=== PATIENT | female | born 1955 | race Caucasian/White ===

== ENCOUNTER 2016-04-28 11:45 | Outpatient (CLI) ==
[2016-04-28 12:56] LABS: BILIRUBIN,URINE Negative (NEGATIVE); KETONES,URINE Negative (NEGATIVE); LEUKOCYTE ESTERASE ,URINE Negative (NEGATIVE); NITRITE,URINE Negative (NEGATIVE); PH,URINE 5.5 (5-9); PROTEIN,URINE Negative (NEGATIVE); URINE, BLOOD Negative (NEGATIVE)
[2016-04-28 12:57] LABS: BASOPHILS % (AUTO) 0.5 % (0.0-3.0); EOSINOPHILS # (AUTO) 0.2 K/ul (0.0-0.7); EOSINOPHILS % (AUTO) 2.9 % (0.0-7.0); HEMOGLOBIN 12.3 g/dl (12.0-16.0); IMMATURE GRANULOCYTE % (AUTO) 0.3 % (0.0-5.0); LYMPHOCYTES # (AUTO) 2.4 K/uL (0.60-3.4); LYMPHOCYTES % (AUTO) 38.9 (10.0-50.0); MEAN CORPUSCULAR HEMOGLOBIN 28.6 pg (27.0-31.0); MEAN CORPUSCULAR HGB CONC 32.4 (31.8-35.4); MEAN CORPUSCULAR VOLUME 88.4 fl (81.0-99.0); MONOCYTES # (AUTO) 0.5 K/uL (0.4-2.0); MONOCYTES % (AUTO) 7.8 (0-10); NEUTROPHILS # (AUTO) 3.1 K/ul (2.0-6.9); NEUTROPHILS % (AUTO) 49.6; PLATELET COUNT 234 10^3/uL (140-440); WHITE BLOOD COUNT 6.28 K/ul (4.6-10.2)
[2016-04-28 12:58] LABS: ADD URINE MICROSCOPIC NO
[2016-04-28 13:19] LABS: ALBUMIN 3.7 g/dL (3.4-5.0); ALBUMIN/GLOBULIN RATIO 1.23; ANION GAP 14.2; BILIRUBIN,TOTAL 0.67 mg/dL (0.00-1.20); CALCIUM 10.9 mg/dL (8.2-10.2); CREATININE 0.7 mg/dL (0.60-1.30); POTASSIUM 4.2 mmol/L (3.5-5.10); TOTAL PROTEIN 6.7 g/dL (5.8-8.1)
== END 2016-04-28 11:46 | disposition home or self-care (01) ==
LOC: LAB 11:45
PROVIDERS: ATTEND General Practice
DX: E78.5 Hyperlipidemia, unspecified (principal); I10 Essential (primary) hypertension; E88.81 Metabolic syndrome and other insulin resistance; R21 Rash and other nonspecific skin eruption; K58.9 Irritable bowel syndrome, unspecified; Z79.899 Other long term (current) drug therapy
CPT/HCPCS: 36415; 80053; 80061; 81001; 85025

== ENCOUNTER 2016-09-01 08:55 | Outpatient (CLI) ==
[2016-09-01 15:06] LABS: BASOPHILS % (AUTO) 0.7 % (0.0-3.0); EOSINOPHILS # (AUTO) 0.2 K/ul (0.0-0.7); EOSINOPHILS % (AUTO) 3.5 % (0.0-7.0); HEMATOCRIT 39.2 % (37.0-47.0); HEMOGLOBIN 12.8 g/dl (12.0-16.0); IMMATURE GRANULOCYTE % (AUTO) 0.2 % (0.0-5.0); LYMPHOCYTES # (AUTO) 2.1 K/uL (0.60-3.4); LYMPHOCYTES % (AUTO) 38.1 (10.0-50.0); MEAN CORPUSCULAR HEMOGLOBIN 28.8 pg (27.0-31.0); MEAN CORPUSCULAR HGB CONC 32.7 (31.8-35.4); MEAN CORPUSCULAR VOLUME 88.1 fl (81.0-99.0); MONOCYTES # (AUTO) 0.4 K/uL (0.4-2.0); MONOCYTES % (AUTO) 7.2 (0-10); NEUTROPHILS # (AUTO) 2.7 K/ul (2.0-6.9); NEUTROPHILS % (AUTO) 50.3; PLATELET COUNT 231 10^3/uL (140-440); RED BLOOD COUNT 4.45 10^6/ul (4.20-5.40); WHITE BLOOD COUNT 5.41 K/ul (4.6-10.2)
[2016-09-01 15:07] LABS: ALBUMIN 3.7 g/dL (3.4-5.0); ALBUMIN/GLOBULIN RATIO 1.32; ANION GAP 16.9; BILIRUBIN,TOTAL 1.01 mg/dL (0.00-1.20); BUN/CREATININE RATIO 25.37; CALCIUM 10.3 mg/dL (8.2-10.2); CHOL/HDL RATIO 4.7 (4.5-5.5); CREATININE 0.67 mg/dL (0.60-1.30); POTASSIUM 3.9 mmol/L (3.5-5.10); TOTAL PROTEIN 6.5 g/dL (5.8-8.1)
[2016-09-01 16:15] LABS: BILIRUBIN,URINE Negative (NEGATIVE); KETONES,URINE Negative (NEGATIVE); LEUKOCYTE ESTERASE ,URINE Negative (NEGATIVE); NITRITE,URINE Negative (NEGATIVE); PH,URINE 6.5 (5-9); PROTEIN,URINE Negative (NEGATIVE); URINE, BLOOD Negative (NEGATIVE)
[2016-09-01 16:16] LABS: ADD URINE MICROSCOPIC NO
== END 2016-09-01 08:56 | disposition home or self-care (01) ==
LOC: LAB 08:55
PROVIDERS: ATTEND General Practice
DX: E88.81 Metabolic syndrome and other insulin resistance (principal); E78.5 Hyperlipidemia, unspecified; I10 Essential (primary) hypertension; Z79.899 Other long term (current) drug therapy; Z87.440 Personal history of urinary (tract) infections
CPT/HCPCS: 36415; 80053; 80061; 81001; 85025

== ENCOUNTER 2017-01-22 13:15 | Outpatient (CLI) ==
[2017-01-22 13:24] LABS: BASOPHILS % (AUTO) 0.4 % (0.0-3.0); EOSINOPHILS # (AUTO) 0.2 K/ul (0.0-0.7); HEMATOCRIT 38.5 % (37.0-47.0); HEMOGLOBIN 12.6 g/dl (12.0-16.0); IMMATURE GRANULOCYTE % (AUTO) 0.4 % (0.0-5.0); LYMPHOCYTES # (AUTO) 2.1 K/uL (0.60-3.4); LYMPHOCYTES % (AUTO) 39.3 (10.0-50.0); MEAN CORPUSCULAR HEMOGLOBIN 29.4 pg (27.0-31.0); MEAN CORPUSCULAR HGB CONC 32.7 (31.8-35.4); MONOCYTES # (AUTO) 0.3 K/uL (0.4-2.0); MONOCYTES % (AUTO) 6.3 (0-10); NEUTROPHILS # (AUTO) 2.6 K/ul (2.0-6.9); NEUTROPHILS % (AUTO) 49.6; PLATELET COUNT 224 10^3/uL (140-440); RED BLOOD COUNT 4.28 10^6/ul (4.20-5.40); WHITE BLOOD COUNT 5.24 K/ul (4.6-10.2)
[2017-01-22 13:27] LABS: BILIRUBIN,URINE Negative (NEGATIVE); KETONES,URINE Negative (NEGATIVE); LEUKOCYTE ESTERASE ,URINE Negative (NEGATIVE); NITRITE,URINE Negative (NEGATIVE); PROTEIN,URINE Negative (NEGATIVE); URINE, BLOOD Negative (NEGATIVE)
[2017-01-22 13:33] LABS: ADD URINE MICROSCOPIC NO
[2017-01-22 13:44] LABS: ALBUMIN 3.4 g/dL (3.4-5.0); ALBUMIN/GLOBULIN RATIO 1.1; BILIRUBIN,TOTAL 0.96 mg/dL (0.00-1.20); BUN/CREATININE RATIO 17.74; CALCIUM 10.3 mg/dL (8.2-10.2); CHOL/HDL RATIO 4.7 (4.5-5.5); CREATININE 0.62 mg/dL (0.60-1.30); TOTAL PROTEIN 6.5 g/dL (5.8-8.1)
== END 2017-01-22 13:16 | disposition home or self-care (01) ==
LOC: LAB 13:15
PROVIDERS: ATTEND General Practice
DX: E88.81 Metabolic syndrome and other insulin resistance (principal); I10 Essential (primary) hypertension; K58.9 Irritable bowel syndrome, unspecified; Z79.899 Other long term (current) drug therapy; R63.5 Abnormal weight gain
CPT/HCPCS: 36415; 80053; 80061; 81001; 83525; 85025

== ENCOUNTER 2017-01-25 08:36 | Outpatient (CLI) ==
--- NOTE | 2017-01-25 11:24 | MAMMO ---
EXAM: Bilateral digital screening mammogram (2-D and 3-D) History: Screening Comparison: Bilateral mammogram 01/30/2016 Findings: MLO and CC views of bilateral breasts demonstrate scattered fibroglandular breast parenchym a. CAD was reviewed by the radiologist. Tomosynthesis was performed. There are no dominant masses, no suspicious microcalcifications and no architectural distortions. Impression: Stable negative mammogram. Recommend followup routine screening mammography in 1 year. BIRADS 1
== END 2017-01-25 08:37 | disposition home or self-care (01) ==
LOC: RAD 08:36
PROVIDERS: ATTEND General Practice
DX: Z12.31 Encounter for screening mammogram for malignant neoplasm of breast (principal)
CPT/HCPCS: 77067

== ENCOUNTER 2017-05-20 13:06 | Outpatient (CLI) | END 2017-05-20 13:07 | disposition home or self-care (01) | LOC: FCC-LAB 13:06 | PROVIDERS: ATTEND General Practice | DX: I10 Essential (primary) hypertension (principal); Z79.899 Other long term (current) drug therapy | CPT/HCPCS: 36415; 80053; 80061; 81001; 85025 ==

== ENCOUNTER 2017-05-27 13:34 | Outpatient (CLI) ==
[2017-05-28 18:21] VITALS: BMI 51.0
== END 2017-05-27 13:35 | disposition home or self-care (01) ==
LOC: FCC-LAB 13:34
PROVIDERS: ATTEND General Practice
DX: J02.9 Acute pharyngitis, unspecified (principal); R05 Cough; R50.9 Fever, unspecified
CPT/HCPCS: 87651; 87804

== ENCOUNTER 2017-05-28 16:34 | Outpatient (CLI) ==
--- NOTE | 2017-05-28 16:49 | DI ---
EXAM: CHEST FRONTAL AND LATERAL VIEWS HISTORY: Cough. COMPARISON: None FINDINGS: Heart size and mediastinal contour within normal limits. No acute infiltrates. Normal vascularity with no pleural fluid or pneumothorax. The bony thorax has no acute finding. IMPRESSION: No acute process.
[2017-05-28 18:21] VITALS: BMI 51.0
== END 2017-05-28 16:35 | disposition home or self-care (01) ==
LOC: RAD 16:34
PROVIDERS: ATTEND General Practice
DX: R05 Cough (principal)

== ENCOUNTER 2017-05-28 17:28 | Inpatient (IN) ==
[2017-05-28 18:21] VITALS: BMI 51.0
[2017-05-28] MEDS ORDERED: DICLOFENAC SODIUM 100 GM TP SCH (18:45)
[2017-05-28] MEDS ORDERED: COZAAR ONE (20:40)
[2017-05-28] MEDS: LOVENOX SUBCUT SCH (20:44)
[2017-05-28] MEDS: PHENERGAN WITH CODEINE 6.25/10 MG/5 ML PO SCH ×2 (20:44→23:40)
[2017-05-28] MEDS ORDERED: NON-FORMULARY MEDICATION (Losartan Potassium [Losartan Potassium] 50 MG) PO SCH (21:00)
[2017-05-28] MEDS: D5%-1/2NS-KCL 20 MEQ/L IV SOL 1,000 ML IV SCH (21:00)
[2017-05-28] MEDS: DUONEB NEB SCH (22:32)
[2017-05-29] MEDS: DUONEB NEB SCH ×4 (05:03→23:25)
[2017-05-29] MEDS: PHENERGAN WITH CODEINE 6.25/10 MG/5 ML PO SCH ×3 (05:48→18:59)
[2017-05-29] MEDS: COZAAR PO SCH ×2 (09:21→20:35)
[2017-05-29] MEDS: ASPIRIN EC PO SCH (09:22)
[2017-05-29] MEDS: NORVASC PO SCH (09:22)
[2017-05-29] MEDS: D5%-1/2NS-KCL 20 MEQ/L IV SOL 1,000 ML IV SCH (09:22)
--- NOTE | 2017-05-29 20:23 | CT ---
EXAM: CT THORAX HISTORY: Cough, shortness of breath. TECHNIQUE: CT thorax without intravenous contrast. Multiplanar images presented. COMPARISON: None FINDINGS: Heart size is normal. No pericardial effusion. Mild atherosclerotic disease. Limited evaluation of the mediastinum and hilar structures without the administration of intravenous contrast agent. No g ross active lymphadenopathy or hilar mass. Lungs are free of infiltrate. No consolidations or vascular congestion. No pneumothorax or pleural fluid. The bones reveal moderate degenerative changes of the thoracic spine. IMPRESSION: No acute cardiopulmonary process.
[2017-05-29] MEDS: LOVENOX SUBCUT SCH (20:37)
[2017-05-30] MEDS: PHENERGAN WITH CODEINE 6.25/10 MG/5 ML PO SCH ×4 (01:31→17:47)
[2017-05-30] MEDS: D5%-1/2NS-KCL 20 MEQ/L IV SOL 1,000 ML IV SCH (04:15)
[2017-05-30] MEDS: DUONEB NEB SCH ×3 (05:06→16:50)
[2017-05-30] MEDS: NORVASC PO SCH (08:04)
[2017-05-30] MEDS: ASPIRIN EC PO SCH (08:04)
[2017-05-30] MEDS: COZAAR PO SCH (08:04)
[2017-05-30 14:09] VITALS: BP 130/79; TEMP 98.2
--- NOTE | 2017-05-31 13:10 | DS ---
PATIENT IDENTIFICATION: 61 year old female admitted to the hospital because of cough, shortness of breath, hypoxemia and wheezing. The patient was sleepless the night before after she was prescribed Tussionex at the office. The patient had an ecchymotic area in the suprasternal knot about 4 x 5 cm in diameter with no hematoma. This was not present the day before. The patient's respiratory rate was 24, oxygen saturation 93 and wheezing all over anteriorly and posteriorly and short of breath with exertion. HOSPITAL COURSE: The patient indeed has inspiratory and expiratory wheezing all over anteriorly and posteriorly on admission. This patient was given DuoNeb nebulizer ever 6 hours. She was continued on most of her medications. The patient on the next day was feeling much better. She was given Phenergan with Codeine for cough every 6 hours, one teaspoon. VITAL SIGNS: On 05/29/17 at 6 p.m. showed a temperature of 98.3, pulse 102, blood pressure 137/72, respiratory rate 18, oxygen saturation 95. The patient had an oxygen saturation on 05/29/2017 at 5:52 a.m. at 93. The chest x-ray showed no acute processes. The CBC showed normal WBC, borderline anemia, normal CMP, except for slightly elevated serum calcium at 10.3. Procalcitonin less than 0.05. Urinalysis was done the next day and was normal. The patient's physical examination on 05/29/17 revealed and alert individual who is feeling better. LUNGS: No significant wheezing. No rales. HEART: Audible and regular with good tones. ABDOMEN: Soft and nontender. She did eat the snack on admission, however refused the clear liquid on 05/717, but had a sandwich in the evening. The patient consumed 100% of her food on 05/30/17. LABS: Showed WBC normal. Hemoglobin down to 10.9 because of hydration. CMP is normal, except for slightly lower Albumin. The E GFR is 102. The patient is feeling better and seemed to be coughing less with the Phenergan with Codeine and the lungs were clear to auscultation and the heart with normal sinus rhythm. The patient is then discharged today to continue her previous medications prior to admission, except the Tussionex and she is prescribed Phenergan with Codeine, one teaspoon four times a day. She has an appointment this coming at the office and this patient was instructed to keep that appointment and see me sooner if she has any problems. No beta agonist is prescribed at this time, since the patient no longer has the wheezing, inspiratory or expiratory. FINAL DIAGNOSES: 1. ACUTE BRONCHITIS, PROBABLY VIRAL, IMPROVED 2. HYPOXEMIA CORRECTED 3. TACHYPNEA RESOLVED 4. HYPERTENSION, CLOSE TO GOOD CONTROL 5. EXTREME OBESITY, BMI 51.1 6. HISTORY OF DYSLIPIDEMIA 7. HISTORY OF IRRITABLE BOWEL SYNDROME FOLLOWED BY A GI DOCTOR, DR. ZAMORA 8. PREVIOUS HISTORY OF HYSTERECTOMY AND CHOLECYSTECTOMY, WELL TOTAL KNEE REPLACEMENT, LEFT. PROGNOSIS: Guarded. MTDD
--- NOTE | 2017-05-31 13:59 | PN ---
DATE OF VISIT: 05/29/17 The patient, today, is alert. Not dyspneic, nor tachypneic with persistent cough, although less. The patient had a severe cough the night before admission and developed an area of ecchymosis in the upper sternal areas secondary to the coughing. VITAL SIGNS: Today at 2 p.m. showed a temperature of 98.7, pulse 80, blood pressure 145/77, respiratory rate 18, oxygen saturation 96 at room air. FACE: Symmetrical and equal. CHEST: Symmetrical and equal with some ecchymotic areas in the upper sternal area, but no hematoma. LUNGS: Breath sounds are heard in both sides and no wheezing or rales. This patient had inspiratory and expiratory wheeze yesterday. HEART: Audible and regular with good tones. MTDD
--- NOTE | 2017-06-01 10:57 | HP ---
CHIEF COMPLAINT: Persistent, severe cough and shortness of breath and wheezing. SOURCE OF HISTORY: Patient. HISTORY OF PRESENT ILLNESS: The patient was seen at the office 05/27/2017 because of cough that had been for more than a week, productive purulent sputum and wheezing. She also experienced sensation of burning in her throat a few days ago and also a hot alternating cold sensation. She hasn't measured any of her temperature. The patient when she was seen seemed to feel that she is feeling somewhat better. She had taken over the counter medications consisting of Robitussin DM, as well as Coricidin D. The patient was prescribed Tussionex , 1/2 teaspoon to 1 teaspoon every 12 hours. The patient came back to the office the next day with increasing shortness of breath and increasing severity of the cough that kept her awake all night. She also had an ecchymosis in the suprasternal area which she had never had it before, maybe secondary to a ruptured subcutaneous vessel. There is no hematoma in the area of ecchymosis. The patient's respiratory rate at the office was 24 and the oxygen saturation was 93. She was noted to have inspiratory and expiratory wheezing all over anteriorly and posteriorly. Because of the severe cough, tachypnea, as well as hypoxemia, the patient was felt to require an admission. The patient had a rapid A and B on 05/27/2017 and both of those were negative including a negative rapid strep. PAST PERSONAL HISTORY: The patient was seen by Dr. Cat, a GI doctor, because of diagnosis of IBS and was prescribed the Dicyclomine 20 mg three times a day, as well as Diclofenac with Misoprostol. She did experience nausea with this medication and so she had stopped. She had a colonoscopy done by Dr. Cat May 19, 2017. Previous cholecystectomy, history of kidney stones 2016 , previous total abdominal hysterectomy, right carpal tunnel surgery, right total knee replacement, history of hypertension, dyslipidemia, IBS, diverticulosis, metabolic syndrome and chronic headaches and persistent obesity. FAMILY HISTORY: Father had diabetes mellitus, a child had Crohn's disease, a brother had kidney stones and mother had bladder carcinoma, plus diabetes. There is a cancer history in the maternal side. SOCIAL HISTORY: The patient is and resides with her and her children are grown. She had retired from work at [employer]. MEDICATIONS: Prior to this admission. Midrin one p.o. as directed Zinc 50 mg daily Vitamin B complex daily Cranberry capsule two daily Multivitamin with Calcium plus iron one daily Poly-Iron 150 mg capsule daily Celecoxib 200 mg every other day Aspirin 81 mg daily Amlodipine 5 mg daily Diclofenac Sodium gel to be applied externally Losartan 50 mg twice a day Tussionex 1/2 to 1 teaspoon every 12 hours and the patient had cough, whether this is just a progression of the problem or maybe an allergy to the medication. Dicyclomine HCL 20 mg tablet three times a day ALLERGIES: Penicillin, Diclofenac/Misoprostol-nausea. Tussionex questionable. Augmentin producing nausea, headache and fatigue and GI upset. Tequin-heart palpitation, Macrodantin-nausea. Vioxx, the patient is able to tolerate celecoxib. REVIEW OF SYSTEMS: CONSTITUTIONAL: The patient had no fever. Had a chilly alternating with hot sensation and some fatigue because of the persistent cough for more than a week. She did not sleep last night. BUNCH BREAKER: The patient has history of headaches. No significant headache at this time and no history of seizure problems or syncope. VISUAL: The patient denies any blurred vision, double vision or transient loss of vision. AUDITORY: The patient denies any pain or tinnitus or drainage on both ears. RESPIRATORY: The patient has severe intractable cough, rapid breathing and shortness of breath, plus wheezing. CARDIOVASCULAR: Denies any chest pain or chest tightness. GASTROINTESTINAL: The patient does have irritable bowel syndrome, but she has decreased appetite, but no significant abdominal pain and no diarrhea. No vomiting. GENITOURINARY: Denies any pain or urination. MUSCULOSKELETAL: The patient has joint pains and had knee replacement on the left side. ENDOCRINE: Negative. INTEGUMENT: Denies any rash or pruritus, but has ecchymosis at the suprasternal area that was noted this morning. There was no history of injury. The patient just was coughing through the night and did not sleep. HEMATOLOGIC: No sign of prolonged bleeding. PSYCHIATRIC: Affect is normal. PHYSICAL EXAMINATION: GENERAL: We have a 61 year old female admitted to the hospital because of increasing severity of the cough with shortness of breath and wheezing and rapid breathing. Oxygen saturation at the office was 93. Respiratory rate was 24. She is 5'7", weighing 326 pounds, BMI 51.1. VITAL SIGNS: On admission, temperature 97.9, pulse 77, blood pressure 162/84, respiratory rate 20, oxygen saturation 95 at room air. HEAD: Unremarkable. Scalp with no active dermatitis. FACE: Symmetrical and equal with no facial weakness. No tenderness in the frontal or maxillary sinus areas to palpation under pressure. EYES: Pupils equal/reactive to light about 3 mm in size and round. Conjunctivae not pale. Sclerae not icteric. EARS: No drainage. MOUTH: Unremarkable. THROAT: No inflammation, tumors or exudate. NECK: No masses. No bruit. No tenderness. No rigidity. Adenopathy or adenitis. CHEST: Symmetrical and equal with good expansion. LUNGS: Breath sounds are diminished in both sides with inspiratory and expiratory wheeze throughout both anteriorly and posteriorly. HEART: Audible and regular with good tones. No murmurs. ABDOMEN: Protuberant, pendulous, scar from previous surgery. No remarkable tenderness. Bowel sounds are active. EXTERNAL GENITALIA: Not examined. PELVIC AND RECTAL: Not done. LOWER EXTREMITIES: Symmetrical and equal with ankle edema. Anterior tibials present. Unable to palpate posterior tibials. UPPER EXTREMITIES: Symmetrical and equal. ASSESSMENT: 1. ACUTE VIRAL BRONCHITIS 2. RESPIRATORY FAILURE SECONDARY TO #1. 3. HYPERTENSION UNCONTROLLED 4. INTRACTABLE COUGH 5. QUESTIONABLE ALLERGY TO TUSSIONEX 6. HISTORY OF OSTEOARTHRITIS 7. HISTORY OF IBS 8. HISTORY OF HEADACHE 9. HISTORY OF DYSLIPIDEMIA 10. HISTORY OF MORBID OBESITY MTDD
== END 2017-05-30 18:20 | disposition home or self-care (01) | DRG 202 ==
LOC: MEDSURG A 17:28
PROVIDERS: ADMIT General Practice; ATTEND General Practice
DX: J20.8 Acute bronchitis due to other specified organisms (principal); Z68.43 Body mass index [BMI] 50.0-59.9, adult; R09.02 Hypoxemia; R06.82 Tachypnea, not elsewhere classified; I10 Essential (primary) hypertension; E66.8 Other obesity; E78.5 Hyperlipidemia, unspecified; K58.9 Irritable bowel syndrome, unspecified; Z79.899 Other long term (current) drug therapy
CPT/HCPCS: 36415; 80053; 81001; 83525; 84145; 85025; 86710; 87070; 93005; 93010; 94640

== ENCOUNTER 2017-06-14 11:58 | Outpatient (CLI) | END 2017-06-14 11:59 | disposition home or self-care (01) | LOC: FCC-LAB 11:58 | PROVIDERS: ATTEND General Practice | DX: R05 Cough (principal); R06.02 Shortness of breath | CPT/HCPCS: 36415; 86710 ==

== ENCOUNTER 2017-06-17 15:45 | Emergency (ER) ==
[2017-06-17 15:46] VITALS: BMI 51.0
[2017-06-17 15:52] VITALS: BP 166/111; TEMP 97.1
--- NOTE | 2017-06-17 16:08 | ED.PDOC ---
General ED Provider: Dr. FERNANDO BRADLEY Chief Complaint: Non-specific Complaint Stated Complaint: Trouble swallowing. Sensation of rice getting stuck in her lower throat. Presents acutely anxious stating event just started 15 minutes ago. Denies Nausea or vomiting but spitting up clear secretions Time Seen by Physician: 16:05 Mode of Arrival: Walk-In Information Source: Patient Exam Limitations: No limitations Primary Care Provider: [facility] Nursing and Triage Documentation Reviewed and Agree: Yes Reviewed sepsis parameters & appropriate labs ordered?: Yes System Inflammatory Response Syndrome: Not Applicable Sepsis Protocol: For patient's 13 years and over: Temp is 96.8 and below OR 101 and greater Pulse >90 BPM Resp >20/minute Acutely Altered Mental Status Are patient's symptoms suggestive of a new infection, such as: -Pneumonia -Skin, Soft Tissue -Endocarditis -UTI -Bone, Joint Infection -Implantable Device -Acute Abdominal Infection -Wound Infection -Meningitis -Blood Stream Catheter Infection -Unknown System Inflammatory Response Syndrome: Not Applicable () GI Complaint Exam - Abdominal Pain Complaint/Exam Onset: Sudden Duration: 20 min Symptoms Are: Still present (but improved) Timing: Constant Initial Severity: Severe Location of Pain: Discrete Radiates To: Reports: Back Character: Reports: Dull, Aching Aggravating: Reports: None Alleviating: Reports: Rest, Position Associated Signs and Symptoms: Reports: Cough Surgical Obstruction Risk Factors: Reports: None Related Surgical History: Reports: None Abdominal Findings: Absent: CVA Tenderness, Hernia, Inguinal swelling Differential Diagnoses: Other (GERD/hiatal hernia) Review of Systems - Review Of Systems Constitutional: Reports: No symptoms Eyes: Reports: No symptoms Ears, Nose, Mouth, Throat: Reports: No symptoms Respiratory: Reports: No symptoms Cardiac: Reports: No symptoms GI: Reports: No symptoms, Abdominal pain (Gastric Reflux), Nausea : Reports: No symptoms Musculoskeletal: Reports: No symptoms Skin: Reports: No symptoms Neurological: Reports: No symptoms Endocrine: Reports: No symptoms Hematologic/Lymphatic: Reports: No symptoms All Other Systems: Reviewed and Negative Past Medical History - Past Medical History Endocrine: Reports: None Cardiovascular: Reports: None Respiratory: Reports: None Hematological: Reports: None Gastrointestinal: Reports: None, GERD, Other (IBS) Genitourinary: Reports: None Neuro/Psych: Reports: None Musculoskeletal: Reports: None Cancer: Reports: None Last Menstrual Period: HYSTERECTOMY - Surgical History General Surgical History: Reports: None, Unknown - Family History Family History: Reports: Unknown - Social History Smoking Status: Never smoker Hx Substance Use: No Alcohol Screening: None Physical Exam - Physical Exam Appearance: Well-appearing, Obese Ill-appearing: Mild Pain Distress: Mild Eyes: JUN, EOMI, Conjunctiva clear ENT: Ears normal, Nose normal, Oropharynx normal Respiratory: Airway patent, Breath sounds clear, Breath sounds equal, Respirations nonlabored Cardiovascular: RRR, Pulses normal, No rub, No murmur GI/: Tender (midepigastrium) Musculoskeletal: Normal strength, ROM intact, No edema, No calf tenderness Skin: Warm, Dry, Normal color Neurological: Sensation intact, Motor intact, Reflexes intact, Cranial nerves intact, Alert, Oriented Psychiatric: Affect appropriate, Mood appropriate Interpretation - Radiology Interpretation Radiology Results: Negative Exam Interpreted: CXR Radiology Interpretation By: Radiologist Re-Evaluation - Re-Evaluation Time of Re-Evaluation: 18:00 Status: Improved Vital Signs Stable: Yes Appearance: NAD Lungs: Clear Skin: Warm and Dry Neuro: Alert and Oriented X3 CV: RRR Critical Care Note - Critical Care Note Total Time (mins): 30 Course - Course Hematology/Chemistry: 06/17/17 16:45 06/17/17 16:45 Orders, Labs, Meds: Lab Review 06/17/17 06/17/17 16:45 16:45 WBC 7.36 RBC 4.48 Hgb 13.1 Hct 40.5 MCV 90.4 MCH 29.2 MCHC 32.3 RDW Coeff of Reymundo 14.0 Plt Count 239 Immature Gran % (Auto) 0.3 Neut % (Auto) 53.5 Lymph % (Auto) 36.4 Culberson % (Auto) 6.0 Eos % (Auto) 3.4 Baso % (Auto) 0.4 Immature Gran # (Auto) 0.0 Neut # (Auto) 3.9 Lymph # (Auto) 2.7 [place]on # (Auto) 0.4 Eos # (Auto) 0.3 Baso # (Auto) 0.0 Sodium 140 Potassium 3.6 Chloride 108 H Carbon Dioxide 22 L Anion Gap 13.6 BUN 11 Creatinine 0.68 Estimated GFR (MDRD) 88.00 BUN/Creatinine Ratio 16.17 Glucose 136 H Calcium 10.5 H Total Bilirubin 0.8 AST 22 ALT 32 Alkaline Phosphatase 94 Total Creatine Kinase 53 Troponin I < 0.0100 Total Protein 7.3 Albumin 3.8 Globulin 3.5 Albumin/Globulin Ratio 1.09 Orders Category Date Time Status EKG-(ED ONLY) Stat CARDIO 06/17/17 16:11 Ordered CBC W/ AUTO DIFF Stat LAB 06/17/17 16:45 Completed CMP [COMPREHENSIVE METABOLIC PANEL] Stat LAB 06/17/17 16:45 Completed CPK [CREATINE KINASE] Stat LAB 06/17/17 16:45 Completed TROPONIN I Stat LAB 06/17/17 16:45 Completed Mag-Al Plus//Lidocaine [Gi Cocktail] MEDS 06/17/17 16:13 Discontinued 30 ml PO ONCE STA Pantoprazole Sodium [Protonix] MEDS 06/17/17 16:13 Discontinued 40 mg PO ONCE STA CHEST, 2 VIEWS PA & LAT Stat RADS 06/17/17 16:11 Completed Medications Discontinued Medications Generic Name Dose Route Start Last Admin Trade Name Freq PRN Reason Stop Dose Admin Al Hydroxide/Mg Hydroxide 30 ml 06/17/17 16:13 06/17/17 16:24 Gi Cocktail PO 06/17/17 16:14 30 ml ONCE STA Administration Pantoprazole Sodium 40 mg 06/17/17 16:13 06/17/17 16:21 Protonix PO 06/17/17 16:14 40 mg ONCE STA Administration Vital Signs: Temp Pulse Resp BP Pulse Ox 06/17/17 15:46 97.1 F L 79 19 166/111 H 99 Departure - Departure Time of Disposition: 17:15 Disposition: HOME SELF-CARE Discharge Problem: GERD (gastroesophageal reflux disease), Esophageal spasm Instructions: Gastroesophageal Reflux Disease (ED), Esophageal Spasm (ED) Condition: Good Pt referred to PMD for follow-up: Yes (1 week) IPMP verified?: No Additional Instructions: Resume taking Prevacid daily Gastric reflux precautions Mylanta 15 ml after each meal and at bedtime Allergies/Adverse Reactions: Allergies amoxicillin trihydrate [From Augmentin] Allergy (Mild, Unverified 06/17/17 15:52 ) Nausea Patient states headache, fatigue and GI upset. diclofenac sodium [From Arthrotec] Allergy (Mild, Unverified 06/17/17 15:52) Nausea misoprostol [From Arthrotec] Allergy (Mild, Unverified 06/17/17 15:52) Nausea potassium clavulanate [From Augmentin] Allergy (Mild, Unverified 06/17/17 15:52) Nausea Patient states headache, fatigue and GI upset. gatifloxacin [From Tequin] Allergy (Unverified 06/17/17 15:52) Heart palpations nitrofurantoin macrocrystal [From Macrodantin] Allergy (Unverified 06/17/17 15: 52) Nausea rofecoxib [From Vioxx] Allergy (Unverified 06/17/17 15:52) Unknown Home Medications: Ambulatory Orders Zinc Amino Acid Chelate [Zinc] 50 mg PO once daily #30 tab-cap 02/08/15 Cranberry Conc/Ascorbic Acid [Cranberry Plus Vitamin C Sftgl] 2 each PO DAILY # 60 tab-cap 05/06/15 Multivit with Calcium,Iron,Min [Women's Daily Formula] 1 each PO DAILY tab-cap 05/06/15 Vitamin B Complex [B Complex] 1 each PO DAILY tab-cap 05/06/15 Iron Polysaccharide Complex [Poly-Iron] 150 mg PO DAILY #30 tab-cap 09/30/15 Aspirin [Aspirin EC] 81 mg PO DAILY #30 tab-cap 05/06/16 Dicyclomine HCl 20 mg PO TID 05/27/17 Disposition Discussed With: Patient, Family
[2017-06-17] MEDS ORDERED: GI COCKTAIL PO STA (16:13)
[2017-06-17] MEDS ORDERED: PROTONIX PO STA (16:13)
--- NOTE | 2017-06-17 16:44 | DI ---
EXAM: Two views of the chest. History: Cough. Comparison: Chest radiograph 05/28/2017, chest CT 05/29/2017 Findings: Heart size is normal. No focal consolidation. No appreciable pleural fluid and no pneumo thorax. No acute osseous abnormalities. Impression: No acute cardiopulmonary process
== END 2017-06-17 17:30 | disposition home or self-care (01) ==
LOC: ED 15:45
DX: K21.9 Gastro-esophageal reflux disease without esophagitis (principal); K22.4 Dyskinesia of esophagus
CPT/HCPCS: 36415; 80053; 82550; 84484; 85025; 93005; 93010; 99283

== ENCOUNTER 2017-09-16 14:33 | Outpatient (CLI) | END 2017-09-16 14:34 | disposition home or self-care (01) | LOC: FCC-LAB 14:33 | PROVIDERS: ATTEND General Practice | DX: R30.0 Dysuria (principal) | CPT/HCPCS: 81001 ==

== ENCOUNTER 2017-10-11 10:25 | Outpatient (CLI) | END 2017-10-11 10:26 | disposition home or self-care (01) | LOC: FCC-LAB 10:25 | PROVIDERS: ATTEND General Practice | DX: E78.5 Hyperlipidemia, unspecified (principal); I10 Essential (primary) hypertension; Z79.899 Other long term (current) drug therapy | CPT/HCPCS: 36415; 80053; 80061; 81001; 85025 ==

== ENCOUNTER 2017-10-15 13:15 | Outpatient (CLI) | END 2017-10-15 13:16 | disposition home or self-care (01) | LOC: FCC-LAB 13:15 | PROVIDERS: ATTEND General Practice | DX: E83.52 Hypercalcemia (principal) | CPT/HCPCS: 36415; 82310; 83970 ==

== ENCOUNTER 2017-10-22 07:47 | Outpatient (CLI) ==
--- NOTE | 2017-10-22 14:44 | NM ---
Exam: Parathyroid scintigraphy Date of exam: 10/22/2017 Radiopharmaceutical: 20.2 mCi Tc-99m Sestamibi i.v. Reason for exam: Endocrine disorder elevated parathyroid FINDINGS: After the intravenous administration of technetium-99m sestamibi, planar images of the nec k mediastinum were obtained at approximately 30 minutes and 3 hours. There is increased radiopharmaceutical uptake in the right inferior thyroid lobe on the 30-minute chichi ne are images. There is a persistent focus of increased radiopharmaceutical uptake in the right infer ior thyroid lobe on the 3 hour delayed planar images. There is also a small focus of persistent radio pharmaceutical activity in the left inferior thyroid lobe. Impression: Persistent radiopharmaceutical uptake in the right inferior thyroid lobe with mild persistent radioph armaceutical uptake in the left inferior thyroid lobe on the 3 hour delayed planar images. Imaging f indings raise consideration for an enlarged parathyroid glands. Consider further evaluation.
== END 2017-10-22 07:48 | disposition home or self-care (01) ==
LOC: RAD 07:47
PROVIDERS: ATTEND General Practice
DX: E34.9 Endocrine disorder, unspecified (principal); E83.52 Hypercalcemia

== ENCOUNTER 2017-11-04 17:16 | Observation (INO) ==
[2017-11-04 18:26] VITALS: BMI 53.6
[2017-11-04] MEDS ORDERED: NON-FORMULARY MEDICATION (Magnesium Oxide [Magnesium] 400 MG) PO SCH (21:00)
[2017-11-04] MEDS ORDERED: NON-FORMULARY MEDICATION (Acetaminophen [Tylenol Arthritis] 650 MG) PO PRN (22:17)
[2017-11-04] MEDS ORDERED: [UNRECOGNIZED DRUG - OTHER] PO PRN (22:20)
--- NOTE | 2017-11-05 07:48 | DI ---
EXAM: PA and lateral views of the chest HISTORY: Chest pain COMPARISON: Chest x-ray 06/17/[address] chest 05/29/2017 FINDINGS: The cardiomediastinal silhouette is normal. There is no pneumothorax or pleural effusion. There is no consolidation, nodule or mass. The osseous structures demonstrate degenerative disease of the spine. IMPRESSION: No acute cardiopulmonary process
[2017-11-05] MEDS ORDERED: TYLENOL PO PRN (07:59)
[2017-11-05] MEDS ORDERED: ASPIRIN EC PO SCH (08:00)
[2017-11-05] MEDS ORDERED: CHLORPHENIRAMINE MALEATE 4 MG PO SCH (09:00)
[2017-11-05] MEDS ORDERED: COZAAR PO SCH ×2 (09:00→10:00)
[2017-11-05] MEDS ORDERED: ZANTAC PO SCH ×2 (09:00→17:00)
[2017-11-05] MEDS ORDERED: NIFEREX 150 PO SCH (09:00)
[2017-11-05] MEDS ORDERED: NON-FORMULARY MEDICATION (Losartan Potassium [Losartan Potassium] 50 MG) PO SCH (09:00)
[2017-11-05] MEDS ORDERED: BALANCED B-100 PO SCH (09:00)
[2017-11-05] MEDS ORDERED: DICYCLOMINE HCL 10 MG PO SCH (09:00)
[2017-11-05] MEDS ORDERED: NON-FORMULARY MEDICATION (Multivit With Calcium,Iron,Min [Women's Daily Formula] 1 EACH) PO SCH (09:00)
[2017-11-05] MEDS ORDERED: MULTIVITAMIN TABLET PO SCH (09:00)
[2017-11-05] MEDS: BENTYL PO SCH ×2 (09:37→14:40)
[2017-11-05] MEDS: PROTONIX PO SCH ×2 (09:43→16:43)
--- NOTE | 2017-11-05 09:46 | PCM.CONS ---
CONSULTING PROVIDER: Dr. FE MARIEE ATTENDING PROVIDER: Dr. [facility]J [facility] DATE OF SERVICE: 11/05/17 SUBJECTIVE: This 61 year old WHITE/ F was hospitalized 11/04/17. The patient is seen in consultation by Nellie Ortega APRN. The patient describes recent intermittent chest pain, sharp, stabbing in center of chest, at times radiating to jaw. No sweating. No shortness of breath. The patient has history of dyslipidemia. She had previously been on statins but Dr. Roa had discontinued. The patient reports having heart catheterization greater than 10 years ago at [facility]. Recent lipid panel abnormal. The patient also has history of GERD but also experienced chest pain. REVIEW OF SYSTEMS: CONSTITUTIONAL: No night sweats. No fatigue, malaise, lethargy. No fever or chills. HEENT: Eyes: No visual changes. No eye pain. No eye discharge. ENT: No runny nose. No epistaxis. No sinus pain. No odynophagia. No congestion. RESPIRATORY: No cough, no congestion. No hemoptysis. No shortness of breath. CARDIOVASCULAR: No angina symptoms. No CHF symptoms. Chest pain for CAD. No palpitations. No orthopnea. GASTROINTESTINAL: No abdominal pain. No nausea or vomiting. No diarrhea or constipation. No hematemesis. No hematochezia. GENITOURINARY: No urgency. No frequency. No dysuria. No hematuria. No obstructive symptoms. No discharge. No pain. No significant abnormal bleeding. MUSCULOSKELETAL: No musculoskeletal pain; no joint swelling. NEUROLOGICAL: Awake, alert, oriented to time, place and person. No headache. No neck pain. No syncope. No seizures. No dizziness. PSYCHIATRIC: Not anxious. No depression. No suicidal thoughts. No homicidal thoughts. SKIN: No rash. No lesions. No wounds. ENDOCRINE: No unexplained weight loss. No weight gain. HEMATOLOGIC/LYMPHATIC: No anemia. No purpura. No petechiae. No prolonged or excessive bleeding. No palpable lymph nodes. PHYSICAL EXAMINATION: GENERAL: The patient is awake, alert and oriented, lying/sitting in bed in no distress. VITAL SIGNS: Temperature 97.5 F, Pulse 63, Respiratory Rate 16, BP 113/61, Pulse Ox 93% HEENT: Head normocephalic, atraumatic. Eyes: Extraocular muscles are intact. Pupils are equal, round and reactive to light and accommodation. Ears: No lesions. Nose appeared normal. Throat: No exudate or erythema. NECK: Supple. No JVD, no carotid bruit. No lymphadenopathy or thyromegaly. LUNGS: Clear to auscultation. Percussion note normal. Chest symmetrical. HEART: S1, S2, no S3. No murmurs. No cyanosis or clubbing. No ascites. Pulses: Dorsalis pedis and posterior tibial pulses +1 to +2 both sides. ABDOMEN: Soft. Non-tender. Bowel sounds active. No CVA tenderness. No mass felt. EXTREMITIES: No edema. Full range of motion of all extremities, equal. NEUROLOGIC: No focal deficit. Cranial nerves II through XII are grossly intact. No headache, no double vision or headache. SKIN: Warm and dry. Intact. Turgor-normal. LYMPHATIC: No palpable lymph nodes/no lymphedema. MUSCULOSKELETAL: Normal joints with no swelling. Muscle tone is normal. LAB REVIEW: 11/04/17 20:08 11/04/17 20:08 11/04/17 20:08: Sodium 140.4, Potassium 3.67, Chloride 106.8, Carbon Dioxide 26.9, Anion Gap 10.37, BUN 18.1 H, Creatinine 0.74, Estimated GFR (MDRD) 80.00, BUN/Creatinine Ratio 24.45, Glucose 108.3 H, Calcium 10.77 H, Total Bilirubin 0.86, AST 38.1 H, ALT 33.5, Alkaline Phosphatase 96.5, Total Creatine Kinase 65.3, Troponin I < 0.012, Total Protein 7.29, Albumin 4.20, Globulin 3.09, Albumin/Globulin Ratio 1.35, TSH 1.780 11/04/17 20:08: WBC 6.93, RBC 4.73, Hgb 13.6, Hct 41.4, MCV 87.5, MCH 28.8, MCHC 32.9, RDW Coeff of Reymundo 14.0, Plt Count 220, Immature Gran % (Auto) 0.1, Neut % (Auto) 56.3, Lymph % (Auto) 35.1, Freeborn % (Auto) 6.2, Eos % (Auto) 2.0, Baso % (Auto) 0.3, Immature Gran # (Auto) 0.0, Neut # (Auto) 3.9, Lymph # (Auto ) 2.4, Freeborn # (Auto) 0.4, Eos # (Auto) 0.1, Baso # (Auto) 0.0 ASSESSMENT: 1. Chest pain 2. GERD 3. Hypertension 4. Obesity 5. Dyslipidemia RECOMMENDATIONS/PLAN: 1. Stress echo today by Dr. Mariee 2. Protonix 40 mg p.o. b.i.d. 3. Stop Zantac 4. Lipitor 40 mg p.o. daily Plan and coordination of the patient's care discussed in the presence of Rn Bsn and Nurse. CONDITION: Stable SCRIBED BY: LAURENT CESPEDES, Restaurant Worker scribed while in presence of service performed by NELLIE ORTEGA APRN AND Dr. FE MARIEE on 11/05/17 (0900)
[2017-11-05 18:14] VITALS: BP 126/81; TEMP 97.9
[2017-11-05] MEDS ORDERED: MAG-OX PO SCH (21:00)
[2017-11-05] MEDS ORDERED: LIPITOR PO SCH (21:00)
--- NOTE | 2017-11-08 10:53 | SSS ---
DATE OF SERVICE: 11/05/17 CHIEF COMPLAINT: Anterior chest pain with diaphoresis and nausea. HISTORY OF PRESENT ILLNESS: The patient presented to the office on the day of admission because of elevated PTH intact and serum calcium. The patient had parathyroid scintigraphy and was this was to be discussed on the visit. The parathyroid scintigraphy indeed was abnormal and the patient has a possible parathyroid hyperplasia both interior glands. The patient already has a referral to an well control instructor. She did complain of anterior chest pain, which she describes as severe radiating to both sides of her chest. She had some diaphoresis with nausea. No significant weakness. The problem lasted for about two hours and it happened two days prior to this visit. The patient at the time of examination on 11/04/2017 was alert, oriented times four, not dyspneic, nor tachypneic without any chest pain. Because of the history indicative of angina, probably unstable, the patient was advised admission on observation and further cardiac work-up. The patient was agreeable. PAST PERSONAL HISTORY: The patient had tonsillectomy at age 3, some cardiomegaly with PVC, hypertension, dyslipidemia, GERD, cholecystectomy, renal stones treated with lithotripsy, hysterectomy, right carpal tunnel surgery and right total knee replacement, pain in the left knee and anemia. The patient had colonoscopy 05/19/2016 and endoscopy date unknown to her. Elevated PTH intact and serum calcium and abnormal intake of bilateral lower parathyroid. Also sleep apnea and persistent elevated BMI. FAMILY HISTORY: Daughter has Crohn's disease, father had diabetes mellitus, father had renal stones, mother had bladder carcinoma, as well as diabetes. Some other members of the family had malignancy. SOCIAL HISTORY: The patient is and resides with her who is retired. Her children are grown. The patient does not smoke any cigarettes or use any tobacco products and no alcoholic beverages. MEDICATIONS: Prior to this admission. Vitamin B complex one tablet daily, Multivitamin with calcium, iron one daily, Poly-Iron 150 mg daily, Aspirin 81 mg daily, Losartan 50 mg twice a day, Magnesium Oxide 400 mg at bedtime, Headache Powder one packet every 6 hours prn for headache, Chlorpheniramine Maleate 4 mg twice a day, Cranberry concentrate plus Ascorbic acid two capsules three times a day, Bentyl Hydrochloride 10 mg three times a day, Zantac 150 mg twice a day, Tylenol 650 mg daily for the left knee pain. ALLERGIES: The patient is allergic to Amoxicillin, Diclofenac, Misoprostol, Tequin, Augmentin, Macrodantin, Vioxx. REVIEW OF SYSTEMS: CONSTITUTIONAL: The patient denies any fever or chills or fatigue. HEARING IMPAIRED TEACHER: The patient does have some headaches intermittently, but no headache today. Denies any ataxia or syncopal episodes or seizure problems. VISUAL: She denies any blurred vision, double vision or transient loss of vision including hemianopsia. AUDITORY: Hearing is adequate. Denies any tinnitus, pain or drainage. RESPIRATORY: Denies any significant cough, shortness of breath or hemoptysis. CARDIOVASCULAR: Denies any chest pain now, but had anterior chest pain described as severe radiating to both sides of the anterior chest and to the mandible with nausea and diaphoresis. GASTROINTESTINAL: The patient has no nausea, anorexia or dysphagia now. She did have nausea two days ago. No abdominal pain. No change in bowel habits and no blood in the stool. GENITOURINARY: Denies any pain or urgency on urination and no blood in the urine. MUSCULOSKELETAL: The patient had a previous right TKR and now is going to undergo TKR on the left because of pain. ENDOCRINE: Negative, except that the patient is markedly obese. INTEGUMENT: Denies any rash, pruritus or ecchymosis. HEMATOLOGIC: Negative. PSYCHIATRIC: Affect is normal and the patient is always cheerful. PHYSICAL EXAMINATION: GENERAL: We have a 61 year old female who is going to be 62 soon who is admitted to the hospital because of anterior chest pain radiating to both sides of the anterior chest and to the right mandibular area. The pain was accompanied with nausea, plus anorexia. VITAL SIGNS: Showed a temperature of 98.5, pulse 107, blood pressure left is 137 /93, right 148/88, respiratory rate 20, oxygen saturation 98 at room air. She is 5'6.5 inches, 337 pounds. HEAD: Unremarkable. Scalp with no active dermatitis. FACE: Symmetrical and equal with no facial weakness. She denies any tenderness in the frontal or maxillary sinus areas to palpation under pressure. EYES: Pupils equal/reactive to light and round. Conjunctivae not pale. Sclerae not icteric. MOUTH: Unremarkable. THROAT: No inflammation, tumors or exudate. EARS: External ears normal. No drainage. NECK: No masses palpated including the parathyroids and mid to lower portion of the thyroid area. No bruit. No tenderness. No rigidity. CHEST: Symmetrical and equal with good expansion. LUNGS: Breath sounds are heard in both sides with no rales or wheezing. HEART: Audible and regular with good tones and slightly tachycardic at 107. No murmurs. ABDOMEN: Markedly protuberant, soft with no significant tenderness, but difficult to palpate any masses. Bowel sounds are active and no bruit. EXTERNAL GENITALIA: Not examined. PELVIC AND RECTAL: Not performed. LOWER EXTREMITIES: Essentially symmetrical and equal with no tenderness in the calf muscles. There is some pitting edema 1+. Tibial pulses are present, but the posterior tibials are diminished. UPPER EXTREMITIES: Symmetrical and equal. ASSESSMENT: 1. ANGINA 2. HYPERTENSION, NEAR GOOD CONTROL 3. MARKEDLY ELEVATED BMI 4. OBSTRUCTIVE SLEEP APNEA 5. OSTEOARTHRITIS BOTH KNEES, SEVERE. POST RIGHT TKR AND THE LEFT WILL BE OPERATED SOON. 6. [facility]RSE: The patient while in the hospital had the following work-up, CBC normal, CMP is slightly elevated sugar at 108.3, serum calcium 10.77, AST slightly above normal at 38.1, upper normal 36. Troponin normal at less than 0.012. CK normal at 65.3. Thyroid normal 1.780. Stress test negative for ischemia. This patient was advised about the negative findings and she felt relieved. The patient was prescribed Protonix by Dr. Mariee at 40 mg daily, as well as Lipitor. However, I would change the Lipitor to Crestor. This will be called into the pharmacy. Crestor 10 mg daily and Protonix 40 mg before a meal once a day. FINAL DIAGNOSIS: 1. ANTERIOR CHEST PAIN, ETIOLOGY UNDETERMINED 2. HISTORY OF GERD 3. HISTORY OF SLEEP DISORDER, OBSTRUCTIVE SLEEP APNEA 4. MARKEDLY ELEVATED BMI 5. HYPERTENSION, CONTROLLED 6. POSSIBLE PARATHYROID HYPERPLASIA, ELEVATED SERUM CALCIUM AND PTH INTACT AND POSITIVE PARATHYROID SCINTIGRAPHY 7. HISTORY OF NEPHROLITHIASIS TREATED WITH LITHOTRIPSY TIME SPENT: GREATER THAN 65 MINUTES MTDD
--- NOTE | 2017-11-08 11:51 | CONS ---
DATE OF SERVICE: 11/05/17 CONSULTATION: REASON FOR CONSULTATION: Chest pain. HISTORY OF PRESENT ILLNESS: This is a 61-year-old female who presented from M.D office and reports chest pain, midsternal, sharp and radiates from center of chest outward to shoulders. She originally thought pain was from GERD but due to radiation to right jaw she became concerned. She reports pain last occurred two days ago while driving . No diaphoresis. Reports nausea. The patient was seen and examined with the Loft Rigger. The patient was hospitalized with chest pain, seems to be fairly atypical. REVIEW OF SYSTEMS: CONSTITUTIONAL: No night sweats. No fatigue, malaise, lethargy. No fever or chills. HEENT: Eyes: No visual changes. No eye pain. No eye discharge. ENT: No runny nose. No epistaxis. No sinus pain. No sore throat. No odynophagia. No ear pain. No congestion. Seasonal allergies. RESPIRATORY: Intermittent cough, nonproductive. No hemoptysis. CARDIOVASCULAR: No angina symptoms. No CHF symptoms. No atypical chest pain for CAD, PND or orthopnea at the present time. No palpitations. No shortness of breath. GASTROINTESTINAL: No abdominal pain. No nausea or vomiting. No diarrhea or constipation. No hematemesis. No hematochezia. GENITOURINARY: Dribbling and urgency at times. MUSCULOSKELETAL: Osteoarthritis pain to hands, left knee, lower back. NEUROLOGICAL: Occasional headache. No neck pain. No syncope. No seizures. No dizziness. PSYCHIATRIC: Not anxious. No depression. No suicidal thoughts. No homicidal thoughts. SKIN: Warm and dry. No rash. No lesions. No wounds. ENDOCRINE: No unexplained weight loss. No weight gain. HEMATOLOGIC/LYMPHATIC: No anemia. No purpura. No petechiae. No prolonged or excessive bleeding. No palpable lymph nodes. SOCIAL HISTORY: Nonsmoker. No alcohol use. . MEDICATIONS: ASA Tylenol arthritis Chlorpheniramine maleate Cranberry plus Vitamin C Dicyclomine Losartan Magnesium Oxide MVI with Iron Niferex Zantac Vitamin B complex ALLERGIES: AMOXICILLIN, DICLOFENAC, AUGMENTIN, TEQUIN, MACRODANTIN, VIOXX PAST MEDICAL/SURGICAL HISTORY: TKR right Hysterectomy Cholecystectomy Carpal Tunnel Release, right Heart Catheterization greater than 10 years Hypertension GERD Osteoarthritis Dyslipidemia Sleep apnea Scheduled TKR, left, 12/06/17 PHYSICAL EXAMINATION: VITAL SIGNS: Pulse 63, BP 113/61, temperature 97.5, 02 sat 93% on room air, weight 337 lbs, BMI 53.6. GENERAL: The patient is oriented to time, place and person. HEENT: Head normocephalic, atraumatic. Eyes: Extraocular muscles are intact. Pupils are equal, round and reactive to light and accommodation. Ears: No lesions. Nose appeared normal. Throat: No exudate or erythema. NECK: Supple. No JVD, no carotid bruit. No lymphadenopathy or thyromegaly. LUNGS: Clear to auscultation. Percussion note normal. Chest symmetrical. HEART: S1, S2, no S3. No murmurs. No cyanosis or clubbing. No ascites. Pulses: Dorsalis pedis and posterior tibial pulses +1 bilaterally. ABDOMEN: Soft. Nontender. Bowel sounds active. No CVA tenderness. No mass felt. EXTREMITIES: No edema. Full range of motion of all extremities, equal. NEUROLOGIC: No focal deficit. Cranial nerves II through XII are grossly intact. No headache, no double vision or headache. SKIN: Not dry. Intact. Turgor - normal. LYMPHATIC: No palpable lymph nodes/no lymphedema. MUSCULOSKELETAL: Normal joints with no swelling. Muscle tone is normal. The patient has massive obesity with BMI Of 53. EKG sinus rhythm. No acute changes. Cardiac markers negative. Labs are acceptable with profile abnormal. CPK troponin within normal limits. TSH 1.780. Chest x-ray no acute findings. Calcium 10.77, glucose 108. Lipids on 10/11/17: Triglycerides 181, cholesterol 251, LDL 160, VLDL 36, HDL 55, TSH (11/04/17) 1.780. PTH intact (10/15/17) 105. ASSESSMENT: 1. CHEST PAIN SEEMS TO BE NONCARDIAC 2. DYSLIPIDEMIA 3. HYPERTENSION 4. MASSIVE OBESITY Echocardiogram was done which showed LVH mild to moderate with enlargement of the LA cavity. LA cavity size is anywhere from 4.7 to 5 cm. LV contractility is normal. The patient underwent stress echo. The patient had normal stress echo with no evidence of ischemia. She reached her target heart rate METS level was 4.6. The patient advised to have stress echo done every couple of years unless the patient's symptoms, coronary insufficiency happens. RECOMMENDATIONS: 1. Lipitor 40 mg p.o. daily 2. Counseling for weight loss done 3. Hold blood pressure 130/80 or under 4. Non HDL goal is less than 100 5. Protonix 40 mg b.i.d. Lipitor/myalgia/rhabdo discussed. Non HDL '100' goal discussed. ADDENDUM: The patient has a lot of reflux symptoms. Symptoms could be coming from gastroesophageal reflux disease. Thanks for the referral, will follow. HAN
--- NOTE | 2017-11-08 11:52 | STRESSECHO ---
Date of Test: 11/05/17 Ordering Physician: DR. SJ LEAL Reason for Exam: CHEST PAIN, HTN, DYSLIPIDEMIA Height: 66" Weight: 331 LBS Current Medications: LOSARTAN, ZANTAC Resting EKG: SINUS RHYTHM/ NO ACUTE CHANGES Target Heart Rate: 134 S-T SEGMENT STAGE MPH/GRADE HEART RATE BPM BLOOD PRESSURE MMHG RHYTHM +/- ELEVATION DEPRESSION SYMPTOMS,COMMENTS AT REST 71 146/82 SR X NONE 1 1.7/10% 2 2.5/12% 3 3.4/14% 4 4.2/16% 5 5.0/18% Immediately After 136 178/72 SR X SHORT OF BREATH Minutes Post Exercise 4:00 86 158/78 SR X NO COMMENTS Minutes Post Exercise DURATION OF EXERCISE: 2:36 MAXIMUM HEART RATE REACHED: 136 REASON FOR TERMINATION: SHORT OF BREATH 95% OXYGEN SATURATION WITH EXERCISE ON ROOM AIR INTERPRETATION: 1. NO EVIDENCE OF ISCHEMIA BY ST-T WAVE 2. NO CHEST PAIN OR DISCOMFORT 3. NO ARRHYTHMIAS 4. BLOOD PRESSURE RESPONSE: ADEQUATE NORMAL LEFT VENTRICULAR CONTRACTILITY--RESTING AND POST EXERCISE MTDD
--- NOTE | 2017-11-08 11:54 | CONS ---
BILLIN11/05/17 LEVEL 5 - [facility]
--- NOTE | 2017-11-08 11:54 | ECHOSTRESS ---
Date of Exam: 11/05/17 Ordering Physician: DR. SJ LEAL Reason for Echo: CHEST PAIN, STRESS TEST --NO ISCHEMIA M-Mode Normal Adult Results LV Dimensions Normal Adult Results AoV Opening excursions >1.6 LVEDD-base- 3.5-5.8 Ao root dimensions 2.0-3.7 LVESD-base- 3.1-4.6 L. Atrium dimensions 1.9-3.8 Post. Wall thickness 0.8-1.1 IV septum (thickness) 0.7-1.2 Post. Wall excursion 0.72-1.3 Septal motion Systolic motion R. Ventricular cavity 1.5-2.0 LVEF 60% Paradoxical septal wall motion 2-D: NORMAL LEFT VENTRICULAR CONTRACTILITY--RESTING AND POST EXERCISE M-MODE: MV: AV: TV: PV: CHAMBER SIZE: WALL MOTION: NORMAL LEFT VENTRICULAR CONTRACTILITY--RESTING AND POST EXERCISE PERICARDIUM: INTERPRETATION: 1. NORMAL LEFT VENTRICULAR CONTRACTILITY--RESTING AND POST EXERCISE MTDD
--- NOTE | 2017-11-08 11:59 | ECHO2D ---
Date of Exam: 11/05/17 Ordering Physician: DR. SJ LEAL Room # : 115 Reason for Echo: CHEST PAIN, EVAL LV FUNCTION M-Mode Normal Adult Results LV Dimensions Normal Adult Results AoV Opening excursions >1.6 >1.6 LVEDD-base- 3.5-5.8 4.6 Ao root dimensions 2.0-3.7 3.1 LVESD-base- 3.1-4.6 L. Atrium dimensions 1.9-3.8 4.8 Post. Wall thickness 0.8-1.1 1.3 IV septum (thickness) 0.7-1.2 1.3 Post. Wall excursion 0.72-1.3 NORMAL Septal motion NORMAL Systolic motion R. Ventricular cavity 1.5-2.0 NORMAL LVEF 60% 66% Paradoxical septal wall motion NORMAL 2-D : 2-D M Mode Echocardiogram was performed using apical four chamber and left parasternal long and short axis views. Mitral, tricuspid and aortic valves appear to be normal. Contractility of the left ventricle seems to be normal, so is the cavity size. Enlarged Left atrial cavity. Aortic root appear to be normal. There is no pericardial effusion. There is no thrombus noted in the left ventricular or left aortic cavity. No mitral valve prolapse noted. M-MODE: MV: NORMAL AV: NORMAL TV: NORMAL PV: CHAMBER SIZE: ENLARGED LEFT ATRIAL CAVITY WALL MOTION: NORMAL PERICARDIUM: NORMAL INTERPRETATION: 1. LEFT VENTRICULAR CONTRACTILITY WITH ENLARGED LEFT ATRIAL CAVITY (4.8CM) 2. NORMAL LEFT VENTRICULAR CONTRACTILITY 3. NORMAL VALVES MTDD
== END 2017-11-05 20:45 | disposition home or self-care (01) ==
LOC: MEDSURG B 17:16
PROVIDERS: ADMIT General Practice; ATTEND General Practice
DX: R07.89 Other chest pain (principal); R61 Generalized hyperhidrosis; R11.0 Nausea; I20.9 Angina pectoris, unspecified; I10 Essential (primary) hypertension; G47.30 Sleep apnea, unspecified; M17.0 Bilateral primary osteoarthritis of knee; R51 Headache
CPT/HCPCS: 36415; 80053; 82550; 83525; 84443; 84484; 85025; 87081; 93005; 93010

== ENCOUNTER 2018-05-03 07:48 | Outpatient (CLI) | END 2018-05-03 07:49 | disposition home or self-care (01) | LOC: LAB 07:48 | PROVIDERS: ATTEND Internal Medicine Endocrinology, Diabetes & Metabolism | DX: R42 Dizziness and giddiness (principal); R51 Headache; E21.3 Hyperparathyroidism, unspecified; I10 Essential (primary) hypertension; E55.9 Vitamin D deficiency, unspecified; E88.81 Metabolic syndrome and other insulin resistance; E78.5 Hyperlipidemia, unspecified | CPT/HCPCS: 36415; 80053; 80061; 81001; 82306; 82607; 83970; 84443; 85025 ==

== ENCOUNTER 2018-06-27 14:09 | Outpatient (CLI) ==
--- NOTE | 2018-06-27 15:01 | CT ---
EXAM: CT of the abdomen pelvis without contrast History: Left lower quadrant abdominal pain, vomiting. Comparison: CT of and pelvis 08/03/2014 Technique: Multiplanar CT images through the abdomen pelvis were obtained without the administration of IV contrast Findings: Lung bases are clear. No acute osseous abnormalities. Degenerative changes of the spine. Status post cholecystectomy. The liver is mildly enlarged and fatty. Spleen is unremarkable. Athe rosclerotic vascular calcifications. No peripancreatic inflammation. Adrenal glands are markable. Bilateral nephrolithiasis measuring up to 2 mm on the right and 3 mm on the left. No hydronephrosis. No ureteral calculi. No bowel obstruction. No free air and no ascites. No bladder wall thickenin g. Uterus is not seen and likely has been surgically removed. No perirectal inflammation. Colonic diverticulosis. No abdominal aortic aneurysm. The appendix is not dilated or inflamed. Impression: 1. No acute intra-abdominal or pelvic process. 2. Colonic diverticulosis. 3. Nonobstructing bilateral nephrolithiasis. 4. Mildly enlarged fatty liver
== END 2018-06-27 14:10 | disposition home or self-care (01) ==
LOC: RAD 14:09
PROVIDERS: ATTEND General Practice
DX: R10.32 Left lower quadrant pain (principal); R11.0 Nausea; K59.00 Constipation, unspecified
CPT/HCPCS: 36415; 80053; 81001; 82150; 83690; 85025; 87086

== ENCOUNTER 2018-07-14 11:59 | Observation (INO) ==
[2018-07-14 12:50] VITALS: BMI 56.0
[2018-07-14] MEDS ORDERED: NON-FORMULARY MEDICATION (Acetaminophen [Tylenol Arthritis] 650 MG) PO PRN (14:20)
--- NOTE | 2018-07-14 14:53 | HP ---
DATE OF SERVICE: 07/14/18 CHIEF COMPLAINT: Chest pain, epigastric pain, nausea, sweating. HISTORY OF PRESENT ILLNESS: Ms. Damian is a pleasant 62-year-old patient of Dr. Roa that was seen in the office today with complaints of epigastric pain, nausea, chest wall pain that radiated to the back and this lasting greater than 1.5 hours this morning. She reports that this morning she had an episode of epigastric pain that lasted for approximately 20 minutes that initially felt that it spread across her chest wall and into her back. She said that the pain lasted approximately 20 minutes however the discomfort and nausea lasted for approximately 1.5 hours. She did take a Zantac. She finally got a relief after about 1.5 hours. She did report the pain did radiate up into her throat. She did have sweating, diaphoresis with this. She did experience nausea with this and after review of records, she did have an episode of chest pain back in 2018. She was seen and evaluated by Dr. Mariee. She did have a stress echo that revealed a normal left ventricular contractility, resting and post exercise. This was completed on 11/05. There was no evidence of ischemia. Currently the patient is in no acute distress. She denies any epigastric or chest pain at this time. It is felt due to the acuteness and the nature of the pain that the patient be admitted to the hospital for further evaluation, treatment, cardiac workup and referral to cardiology for evaluation. PAST PERSONAL HISTORY: She does have a history of reflux, hypertension, hyperlipidemia as well as osteoarthritis, inflammatory arthritis and sleep apnea. FAMILY HISTORY: None recorded. SOCIAL HISTORY: Never a smoker, denies alcohol use, denies any substance abuse. PAST SURGICAL HISTORY: Carpal tunnel release Cholecystectomy Hysterectomy Joint replacement of a total knee replacement - this is left knee in November of 2017 Tubal ligation Right total knee replacement MEDICATIONS: Aspirin 81 mg p.o. daily Protonix 40 mg p.o. daily Losartan 50 mg twice a day Crestor 10 mg daily Tylenol Arthritis 650 mg daily Chlorpheniramine maleate 4 mg tablet twice a day Vitamin B complex one tablet daily ALLERGIES: AMOXICILLIN, DICLOFENAC, AUGMENTIN, ARTHROTEC, TEQUIN, MACROBID, VIOXX, GATIFLOXACIN, ROFECOXIB REVIEW OF SYSTEMS: CONSTITUTIONAL: No reports of feverish chills. FILLING HAULER: No reports of headaches, no ataxia. Denies any syncopal episodes or seizure events. VISUAL: No reports of blurred vision, double vision or any transient loss of vision, auditory. AUDITORY: No reports of hearing loss, tinnitus, pain or drainage. RESPIRATORY: No reports of cough. No reports of shortness of breath. CARDIOVASCULAR: As mentioned in the HPI. The patient has had episodes of chest pain. GASTROINTESTINAL: The patient had recent issues with abdominal pain and nausea with intermittent left lower quadrant abdominal pain and persistent nausea throughout the day. She was sent for a CT scan of the abdomen and pelvis that revealed colonic diverticulosis with no acute diverticulitis. GENITOURINARY: No reports of urinary frequency, dysuria or hematuria. MUSCULOSKELETAL: She does have a history of osteoarthritis and she has a history of bilateral total knee replacement surgeries. ENDOCRINE: No reports of polyuria or polydipsia. INTEGUMENT: No reports of rash or pruritus. No reports of ecchymosis. HEMATOLOGIC: No history of prolonged bleeding or spontaneous bleeding. PSYCHIATRIC: Affect appears to be normal. PHYSICAL EXAMINATION: GENERAL: Ms. Damian is a pleasant 62-year-old patient that was admitted to the hospital today for concerns for unstable angina with rule out evolving NC. VITAL SIGNS: Her vital signs today at the office were: Height 66", weight of 343 lbs. Her temperature 97.7, pulse rate 88, respirations 18, blood pressure 134/84, pulse oximetry 98%. HEAD: Unremarkable. FACE: Symmetrical and equal. No facial weakness. No tenderness in the frontal or maxillary sinuses EYES: Pupils equal/reactive to light. Conjunctivae not pale. Sclerae not icteric. MOUTH: Unremarkable. THROAT: No inflammation, tumors or exudate. NECK: No masses. No bruit. No tenderness. No rigidity. CHEST: Symmetrical and equal with good expansion. LUNGS: Clear throughout. HEART: Audible and regular with good heart tones. No murmurs. ABDOMEN: Soft, no tenderness, no masses, no bruit, no herniation. EXTERNAL GENITALIA: Not examined. RECTAL: Not performed. LOWER EXTREMITIES: Symmetrical and equal. No significant edema. Pulses are present. UPPER EXTREMITIES: Symmetrical and equal. ASSESSMENT: 1. Stable angina, rule out evolving NC. 2. Hypertension. 3. Gastroesophageal reflux disease. 4. Hyperlipidemia. 5. Osteoarthritis. PLAN: 1. Admit the patient to the hospital for referral to Dr. Mariee with cardiac workup. The patient is agreeable to this plan. 2. The patient will be followed closely inpatient. 3. Further orders per Dr. Roa. TIME SPENT: GREATER THAN 65 MINUTES MTDD
[2018-07-14] MEDS ORDERED: TYLENOL PO PRN (14:55)
[2018-07-14] MEDS: COZAAR PO SCH (21:00)
[2018-07-14] MEDS ORDERED: NON-FORMULARY MEDICATION (Losartan Potassium [Losartan Potassium] 50 MG) PO SCH (21:00)
[2018-07-15] MEDS: PROTONIX ONE ×2 (05:53→09:14)
[2018-07-15] MEDS ORDERED: PROTONIX PO SCH (06:30)
[2018-07-15] MEDS ORDERED: ATROPINE SULFATE PFS ONE (07:08)
[2018-07-15] MEDS ORDERED: DOBUTAMINE 500 MG-D5W 250 ML 250 ML IV ONE (07:08)
[2018-07-15] MEDS ORDERED: ASPIRIN EC PO SCH (08:00)
[2018-07-15] MEDS ORDERED: CRESTOR PO SCH (09:00)
[2018-07-15] MEDS ORDERED: BALANCED B-100 PO SCH (09:00)
--- NOTE | 2018-07-15 09:08 | ECHO2D ---
Date of Exam: 07/14/2018 Ordering Physician: DR. LEAL Room #: 110 Reason for Echo: CHEST PAIN M-Mode Normal Adult Results LV Dimensions Normal Adult Results AoV Opening excursions >1.6 >1.6 LVEDD-base- 3.5-5.8 4.0 Ao root dimensions 2.0-3.7 3.0 LVESD-base- 3.1-4.6 L. Atrium dimensions 1.9-3.8 4.6 Post. Wall thickness 0.8-1.1 1.4 IV septum (thickness) 0.7-1.2 1.4 Post. Wall excursion 0.72-1.3 NORMAL Septal motion NORMAL Systolic motion R. Ventricular cavity 1.5-2.0 NORMAL LVEF 60% 72% Paradoxical septal wall motion NORMAL 2-D : ENLARGED LEFT ATRIAL CAVITY SIZE OTHER FAUSTIN NORMAL 2-D M Mode Echocardiogram was performed using apical four chamber and left parasternal long and short axis views. Mitral, tricuspid and aortic valves appear to be normal. Contractility of the left ventricle seems to be normal, so is the cavity size. Enlarged Left atrial cavity size. Aortic root appear to be normal. There is no pericardial effusion. There is no thrombus noted in the left ventricular or left aortic cavity. No mitral valve prolapse noted. M-MODE: MV: NORMAL AV: NORMAL TV: NORMAL PV: NORMAL CHAMBER SIZE: ENLARGED LEFT ATRIAL CAVITY WALL MOTION: NORMAL PERICARDIUM: NORMAL INTERPRETATION: 1. LEFT VENTRICULAR HYPERTROPHY WITH ENLARGED LEFT ATRIAL CAVITY 2. NORMAL VALVES 3. NORMAL LEFT VENTRICULAR CONTRACTILITY MTDD
[2018-07-15] MEDS: COZAAR PO SCH (09:14)
--- NOTE | 2018-07-15 09:34 | DOBSTECHST ---
Ordering Physician: DR. LEAL Date of Test: 07/15/2018 Reason for Examination: CHEST PAIN, HYPERTENSION Smoking History: NO Height : 66" Weight: 347 Current Medications: ACETAMINOPHEN, ASPIRIN, COZAAR, PROTONIX, CRESTOR, VITAMIN B COMPLEX Target Heart Rate: 133/157 SaO2: 97% AT REST ON ROOM AIR GLAUCOMA: NO S-T Segment Stage Time HR BPM BP MMHG Rhythm +/- Elevation Depression Symptoms Control Sitting 60 118/82 SR X NONE Dobutamine 250mg/D5W 5cmg/KG/mn 10cmg/KG/mn 3" 85 144/62 SR X NONE 15cmg/KG/mn 2" 105 SR X NONE 20cmg/KG/mn 2" 122 150/50 SR X NONE 25cmg/KG/mn 1:35 126 122/50 SR X NONE 30cmg/KG/mn 35cmg/KG/mn 40cmg/KG/mn 3 MIN POST INFUSION z 90 140/70 8 MIN POST INFUSION z 84 138/80 DURATION OF INFUSION 8 MINUTES AND 35 SECONDS MAXIMUM HEART RATE REACHED 126 SaO2 99% ON ROOM AIR WITH DOBUTAMINE INFUSION Interpretation: 1. NO EVIDENCE OF ISCHEMIA BY ST-T WAVE (RESTING 60BPM TO DOBUTAMINE INFUSION RATE OF 126 BPM) 2. NO CHEST PAIN OR DISCOMFORT 3. NORMAL LEFT VENTRICULAR CONTRACTILITY RESTING AND WITH DOBUTAMINE INFUSION 4. SESTAMIBI TO FOLLOW MTDD
--- NOTE | 2018-07-15 09:36 | ECHOSTRESS ---
Date of Exam: 07/15/2018 Ordering Physician: DR. LEAL Reason for Echo: CHEST PAIN, DOBUTAMINE STRESS = NO ISCHEMIA M-Mode Normal Adult Results LV Dimensions Normal Adult Results AoV Opening excursions >1.6 LVEDD-base- 3.5-5.8 Ao root dimensions 2.0-3.7 LVESD-base- 3.1-4.6 L. Atrium dimensions 1.9-3.8 Post. Wall thickness 0.8-1.1 IV septum (thickness) 0.7-1.2 Post. Wall excursion 0.72-1.3 Septal motion Systolic motion R. Ventricular cavity 1.5-2.0 LVEF 60% Paradoxical septal wall motion 2-D: NORMAL LEFT VENTRICULAR CONTRACTILITY RESTING AND WITH DOBUTAMINE INFUSION M-MODE: MV: AV: TV: PV: CHAMBER SIZE: WALL MOTION: NORMAL LEFT VENTRICULAR CONTRACTILITY RESTING AND WITH DOBUTAMINE INFUSION PERICARDIUM: INTERPRETATION: 1. NORMAL LEFT VENTRICULAR CONTRACTILITY RESTING AND WITH DOBUTAMINE INFUSION MTDD
--- NOTE | 2018-07-15 10:39 | NM ---
Exam: Cardiac stress test with SPECT imaging. Reason for exam: Chest pain Comparison: None. Date of exam: 07/15/2018 Radiopharmaceutical: Rest: 12.6mCi Tc-99m Sestamibi i.v. Stress: 32.8mCi Tc-99m Sestamibi i.v. Dobutamine FINDINGS: Standard myocardial perfusion images were obtained after injection of technetium 99m sesta mibi under resting conditions The patient was then stressed with Dobutamine IV. Please see separate report by performing physician for details of the stress protocol Standard myocardial perfusion images were obtained after injection of technetium 99m sestamibi under stress conditions. Gated images were performed to evaluate left ventricular ejection fraction The stress perfusion images demonstrate uniform distribution of activity in the left ventricular myoc ardium. The rest perfusion images demonstrate uniform distribution of activity without evidence of significan t redistribution or ischemia. The left ventricular ejection fraction is calculated to be 57%. There is apparent dilatation of the left ventricle. Impression: 1. Normal appearing left ventricular myocardial perfusion without evidence of significant ischemia 2. Left ventricular ejection fraction measures 57%. 3. Grossly prominent appearing left ventricle.
[2018-07-15 14:28] VITALS: BP 120/78; TEMP 98.6
--- NOTE | 2018-07-22 11:32 | DS ---
DATE OF SERVICE: 07/15/18 PATIENT IDENTIFICATION: The patient was seen at the office initially because of the epigastric and lower sternal pain radiating to the back with nausea and diaphoresis. The patient also experienced pain across her anterior chest. This discomfort and pain lasted for about 1.5 hours. HOSPITAL COURSE: The patient with his history was felt to require further investigation. The patient does have some comorbidities consisting of severe obesity, hypertension and dyslipidemia. The patient was alert and oriented times four. not dyspneic or tachypneic with no cyanosis. LUNGS: Clear HEART: Normal sinus rhythm with no murmurs The patient was seen by Dr. Mariee the conference service coordinator on consultation and did a Dobutamine Stress which is negative for any ischemia. Echocardiogram is normal with left ventricular ejection fraction of 72%. Sestamibi is normal calculated ejection fraction is 57%. The patient was advised of these findings. The patient never had any chest pain or epigastric pain. I did advise the patient maybe to watch the food that she eat that might produce more acid producing more reflux symptoms. I believe it going to be very helpful to lose weight. Maybe these symptoms would probably resolve. FINAL DIAGNOSES: 1. Anterior chest pain, noncardiac 2. History of gastroesophageal reflux disease 3. Elevated BMI 4. History of Dyslipidemia PROGNOSIS: Guarded. TIME SPENT: GREATER THAN 30 MINUTES MTDD
== END 2018-07-15 15:01 | disposition home or self-care (01) ==
LOC: MEDSURG A 11:59
PROVIDERS: ADMIT General Practice; ATTEND General Practice
DX: R07.9 Chest pain, unspecified (principal); R11.0 Nausea; R10.13 Epigastric pain; K21.9 Gastro-esophageal reflux disease without esophagitis; E78.5 Hyperlipidemia, unspecified; I10 Essential (primary) hypertension; M19.90 Unspecified osteoarthritis, unspecified site; I20.9 Angina pectoris, unspecified
CPT/HCPCS: 36415; 80053; 80061; 81001; 82550; 84443; 84484; 85025; 93005; 93010

== ENCOUNTER 2018-10-13 10:13 | Outpatient (CLI) ==
--- NOTE | 2018-10-13 11:00 | US ---
EXAM: Thyroid ultrasound HISTORY: Nodule, abnormal labs COMPARISON: None TECHNIQUE: Thyroid ultrasound was performed FINDINGS: Right thyroid measures 1.7 x 2.0 x 4.5 cm. Left thyroid measures 1.8 x 1 point 7 x 4.8 cm . Thyroid isthmus measures 0.7 cm. Thyroid diffusely heterogeneous in echogenicity. Thyroid normal in vascularity. Predominately isoechoic nodule right mid thyroid measures 1.2 x 1.4 x 0.8 cm. Hypo echoic nodule left mid thyroid measures 0.5 x 0.5 x 0.9 cm. Predominately isoechoic nodule left infe rior thyroid measures 1.1 x 0.7 x 0.7 cm. Hyperechoic nodule right superior thyroid measures 0.5 x 0 .4 x 0.4 cm. IMPRESSION: 1. Diffusely heterogeneous thyroid, nonspecific. 2. Bilateral thyroid nodules. Recommend sonographic follow-up 6 - 12 months.
== END 2018-10-13 10:14 | disposition home or self-care (01) ==
LOC: RAD 10:13
PROVIDERS: ATTEND Internal Medicine Endocrinology, Diabetes & Metabolism
DX: R94.6 Abnormal results of thyroid function studies (principal); E21.3 Hyperparathyroidism, unspecified; I10 Essential (primary) hypertension; E55.9 Vitamin D deficiency, unspecified